=== PATIENT | female | born 1940 | race Caucasian/White ===

== ENCOUNTER 2023-12-03 05:08 | Emergency (ER) | payer MEDICARE, MEDICAID ==
[~2023-12-03] VITALS: Ht 165.1 cm; Wt 136.0 kg
[~2023-12-03 05:08] MED LIST: ASPI-1497 PO; CALC-993 PO; GABA-529 PO; PANT40TA51 PO
[2023-12-03 05:10] VITALS: BP 158/67; PULSE 74; RESP 18; TEMP 98.4; O2SAT 99
== END 2023-12-03 09:13 | disposition left against medical advice (07) ==
LOC: ER 05:08
DX: R11.2 Nausea with vomiting, unspecified (principal); Z53.21 Procedure and treatment not carried out due to patient leaving prior to being seen by health care provider
CPT/HCPCS: 99281